=== PATIENT | female | born 1995 | race Caucasian/White ===

== ENCOUNTER 2017-01-07 21:16 | Emergency (ER) | payer OTHER ==
[2017-01-07] MEDS ORDERED: NALOXONE 0.4 MG/ML 1 ML VIAL IM STA (22:26)
--- NOTE | 2017-01-07 22:32 | ED ---
Overdose HPI - General Chief Complaint: Overdose Stated Complaint: overdose Time Seen by Provider: 01/07/17 21:22 Source: patient Mode of arrival: EMS Limitations: no limitations - History of Present Illness Initial Comments: This patient is a 21-year-old woman brought to be evaluated after she probably had an overdose of heroin. The patient states that she had previously been using heroin for about a year, then she was incarcerated for 90 days and was clean. She states she just got out and she went to picker feeder something from friends of hers. She states that they convinced her to use once and the next thing she remembers she was waking up with EMS present. It was reported that she was given Narcan by the intranasal route. The patient is denying any symptoms currently. MD Complaint: accidental overdose -: minutes(s) Context: Accidental Overdose: wanted to get high, uncertain what happened Treatments Prior to Arrival: narcan (Intranasal by fire department) - Related Data Allergies Allergy/AdvReac Type Severity Reaction Status Date / Time naproxen [From Naprosyn] Allergy Itching Verified 07/11/16 16:51 tramadol Allergy Unknown Verified 07/11/16 16:51 Review of Systems ROS Statement: Those systems with pertinent positive or pertinent negative responses have been documented in the HPI. ROS Other: All systems not noted in ROS Statement are negative. Constitutional: Denies: fever, weakness Eyes: Denies: vision change Respiratory: Denies: cough, dyspnea Cardiovascular: Denies: chest pain, palpitations Gastrointestinal: Denies: abdominal pain, nausea, vomiting Musculoskeletal: Denies: back pain Skin: Denies: lesions Neurological: Denies: headache Psychiatric: Denies: depression, homicidal thoughts, suicidal thoughts Past Medical History Additional Past Medical History / Comment(s): bronchitis, ADHD syncopal syndrome History of Any Multi-Drug Resistant Organisms: None Reported Past Surgical History: Section Additional Past Surgical History / Comment(s): D&C Past Psychological History: ADD/ADHD, Anxiety, Depression, Panic Disorder Smoking Status: Current every day smoker Past Alcohol Use History: None Reported Past Drug Use History: Heroin, Marijuana General Exam Limitations: no limitations General appearance: in no apparent distress, other (Somnolent but arouses to voice) Head exam: Present: atraumatic, normocephalic Eye exam: Absent: scleral icterus, conjunctival injection Pupils: Present: miosis Respiratory exam: Present: normal lung sounds bilaterally. Absent: respiratory distress, wheezes, rales, rhonchi, stridor Cardiovascular Exam: Present: regular rate, normal rhythm, normal heart sounds. Absent: systolic murmur, diastolic murmur, rubs, gallop GI/Abdominal exam: Present: soft. Absent: distended, tenderness, guarding, rebound, mass Extremities exam: Present: normal inspection, normal capillary refill. Absent: pedal edema, calf tenderness Back exam: Present: normal inspection Neurological exam: Present: oriented X3, CN II-XII intact, other (Somnolent but arouses to voice) Skin exam: Present: warm, dry, intact, normal color. Absent: rash Course Vital Signs 01/07/17 01/07/17 21:18 23:18 Temperature 98.2 F 97.4 F L Pulse Rate 76 Respiratory 18 Rate Blood Pressure 133/81 O2 Sat by Pulse 98 100 Oximetry Disposition Clinical Impression: Heroin overdose Disposition: Left Against Medical Advice Condition: Undetermined Referrals: None,Stated [Primary Care Provider] - 1-2 days
[2017-01-07 23:20] VITALS: BP 133/81; PULSE 76; RESP 18; TEMP 97.4
== END 2017-01-08 00:17 | disposition left against medical advice (07) ==
LOC: EC 21:16
DX: T40.1X1A Poisoning by heroin, accidental (unintentional), initial encounter (principal); F17.200 Nicotine dependence, unspecified, uncomplicated; Z88.5 Allergy status to narcotic agent; Z88.6 Allergy status to analgesic agent
CPT/HCPCS: 99284; 96372; J2310

== ENCOUNTER 2017-05-04 14:47 | Emergency (ER) | payer OTHER ==
[2017-05-04 15:06] VITALS: BP 122/68; PULSE 95; RESP 18; TEMP 98.9
--- NOTE | 2017-05-04 15:39 | XR ---
EXAMINATION TYPE: XR hand complete RT DATE OF EXAM: 05/04/2017 COMPARISON: NONE HISTORY: Pain TECHNIQUE: Three views are submitted. FINDINGS: The osseous structures are intact. The joint spaces are preserved and there is no acute fracture or dislocation. IMPRESSION: 1. No definite acute fracture or dislocation if symptoms persist, follow-up study in 7 to 10 days wo uld be suggested
--- NOTE | 2017-05-04 15:41 | XR ---
EXAMINATION TYPE: XR wrist complete RT DATE OF EXAM: 05/04/2017 COMPARISON: NONE HISTORY: Pain TECHNIQUE: Four views submitted. FINDINGS: The osseous structures are intact. The joint spaces are preserved and there is no acute fracture or dislocation. IMPRESSION: 1. No definite acute fracture or dislocation if symptoms persist, follow-up study in 7 to 10 days wo uld be suggested
--- NOTE | 2017-05-04 16:10 | ED ---
Upper Extremity HPI - General Chief Complaint: Extremity Injury, Upper Stated Complaint: Swollen Hand Time Seen by Provider: 05/04/17 15:17 Source: patient Mode of arrival: ambulatory Limitations: no limitations - History of Present Illness Initial Comments: 21-year-old female chief complaint of right hand swelling and pain over the past day and a half. Patient reports that on Sunday she had a heavy welding equipment landed on her right hand. Patient reports that she did have the pain after. She states that there has been increased swelling and redness over the past day and half. Patient states that she has limited range of motion of her fingers and wrist due to the swelling. Denies any peripheral paresthesias. She reports that she's a previous heroin IV drug user, and does have scarred tract paulino over her hand. Patient reports that she is not using the last 8 months. He denies any fever or chills. - Related Data Allergies Allergy/AdvReac Type Severity Reaction Status Date / Time naproxen [From Naprosyn] Allergy Itching Verified 05/04/17 15:06 tramadol Allergy Unknown Verified 05/04/17 15:06 Review of Systems ROS Statement: Those systems with pertinent positive or pertinent negative responses have been documented in the HPI. ROS Other: All systems not noted in ROS Statement are negative. Past Medical History Past Medical History: No Reported History Additional Past Medical History / Comment(s): bronchitis, ADHD syncopal syndrome History of Any Multi-Drug Resistant Organisms: None Reported Past Surgical History: Section Additional Past Surgical History / Comment(s): D&C Past Psychological History: ADD/ADHD, Anxiety, Depression, Panic Disorder Smoking Status: Current every day smoker Past Alcohol Use History: None Reported Past Drug Use History: Heroin, Marijuana General Exam - General Exam Comments Initial Comments: 21-year-old female. No acute distress. Limitations: no limitations General appearance: alert, in no apparent distress Head exam: Present: atraumatic, normocephalic, normal inspection Eye exam: Present: normal appearance, PERRL, EOMI. Absent: scleral icterus, conjunctival injection, periorbital swelling ENT exam: Present: normal exam, mucous membranes moist Neck exam: Present: normal inspection. Absent: tenderness, meningismus, lymphadenopathy Respiratory exam: Present: normal lung sounds bilaterally. Absent: respiratory distress, wheezes, rales, rhonchi, stridor Cardiovascular Exam: Present: regular rate, normal rhythm, normal heart sounds. Absent: systolic murmur, diastolic murmur, rubs, gallop, clicks GI/Abdominal exam: Present: soft, normal bowel sounds. Absent: distended, tenderness, guarding, rebound, rigid Extremities exam: Present: normal inspection, full ROM, normal capillary refill. Absent: tenderness, pedal edema, joint swelling, calf tenderness Right Upper Arm exam: Present: normal inspection, full ROM Elbow exam: Present: normal inspection, full ROM Forearm Wrist exam: Present: normal inspection, tenderness, swelling. Absent: full ROM (Has limited flexion and extension of the wrist due to swelling and pain.) Hand Wrist exam: Absent: normal inspection (Evidence of abrasion over the thumb. Patient reports that that is a scar from previous track paulino from parent drug abuse. There is redness and swelling related to the previous track mario alberto. Patient has pain with flexion and extension of the thumb.Entire hand is very swollen.) Vascular: Present: normal capillary refill Back exam: Present: normal inspection Neurological exam: Present: alert, oriented X3, CN II-XII intact Psychiatric exam: Present: normal affect, normal mood Course Vital Signs 05/04/17 15:03 Temperature 98.9 F Pulse Rate 95 Respiratory 18 Rate Blood Pressure 122/68 O2 Sat by Pulse 100 Oximetry Medical Decision Making - Medical Decision Making 18-year-old female presents emergency Department with right hand swelling and pain for the past and half. Patient reports that earlier in the week she dropped some welding equipment on her hand. Patient states that she takes the pain is related to this. Patient is a previous heroin user, there is some swelling and redness related to anal track mario alberto. Patient reports that she has not used the past 8 months. I discussed with her that her x-rays reviewed to be normal. No evidence of fracture. Discussed the more concerned for infectious process causing this to happen to her hand. Patient was informed of this, and would like to go show Dr. Prasad the patient, the patient eloped. Patient left without any antibiotics or any further treatment. I did discuss prior to her leaving the importance of managing the hand swelling is an infection. - Radiology Data Radiology results: report reviewed His hand and wrist x-rays are reviewed and negative for any acute process. No fractures or dislocations. Disposition Clinical Impression: Swelling of right hand Disposition: Left Against Medical Advice Condition: Stable Referrals: None,Stated [Primary Care Provider] - 1-2 days Time of Disposition: 16:09
== END 2017-05-04 16:05 | disposition left against medical advice (07) ==
LOC: EC 14:47
DX: M79.89 Other specified soft tissue disorders (principal); M79.641 Pain in right hand; Z88.6 Allergy status to analgesic agent
CPT/HCPCS: 99283

== ENCOUNTER 2017-11-11 18:21 | Emergency (ER) | payer OTHER ==
[2017-11-11 18:26] VITALS: TEMP 97.9
--- NOTE | 2017-11-11 18:40 | ED ---
Overdose HPI - General Chief Complaint: Overdose Stated Complaint: Overdose Time Seen by Provider: 11/11/17 18:24 Source: patient, EMS, RN notes reviewed Mode of arrival: EMS Limitations: no limitations - History of Present Illness Initial Comments: This a 21-year-old female presented for via EMS for heroin overdose. Patient initially called 911 because her significant other overdosed and when EMS arrived they found her to be nodding off. Patient was given Narcan 1 mg. Patient states she just feels tired and slightly nauseated but has no other complaints. Patient denies any chest pain, shortness breath, headache, focal weakness. Patient states that she sees heroin daily states it's not as often this time. Patient states she did in intact heroin. She denies suicidal or homicidal ideation. - Related Data Home Medications Medication Instructions Recorded Confirmed No Known Home Medications [No 11/11/17 11/11/17 Known Home Medications] Allergies Allergy/AdvReac Type Severity Reaction Status Date / Time naproxen [From Naprosyn] Allergy Itching Verified 11/11/17 18:23 tramadol Allergy Unknown Verified 11/11/17 18:23 Review of Systems ROS Statement: Those systems with pertinent positive or pertinent negative responses have been documented in the HPI. ROS Other: All systems not noted in ROS Statement are negative. Past Medical History Past Medical History: No Reported History Additional Past Medical History / Comment(s): bronchitis, ADHD syncopal syndrome History of Any Multi-Drug Resistant Organisms: None Reported Past Surgical History: Section Additional Past Surgical History / Comment(s): D&C Past Psychological History: ADD/ADHD, Anxiety, Depression, Panic Disorder Smoking Status: Current every day smoker Past Alcohol Use History: None Reported Past Drug Use History: Heroin, Marijuana General Exam Limitations: no limitations General appearance: alert, in no apparent distress Head exam: Present: atraumatic, normocephalic, normal inspection Eye exam: Present: normal appearance, PERRL, EOMI. Absent: scleral icterus, conjunctival injection, periorbital swelling ENT exam: Present: normal exam, normal oropharynx, mucous membranes moist Neck exam: Present: normal inspection, full ROM. Absent: tenderness, meningismus, lymphadenopathy Respiratory exam: Present: normal lung sounds bilaterally. Absent: respiratory distress, wheezes, rales, rhonchi, stridor Cardiovascular Exam: Present: regular rate, normal rhythm, normal heart sounds. Absent: systolic murmur, diastolic murmur, rubs, gallop, clicks GI/Abdominal exam: Present: soft, normal bowel sounds. Absent: distended, tenderness, guarding, rebound, rigid Neurological exam: Present: alert, oriented X3, CN II-XII intact Skin exam: Present: warm, dry, intact, normal color. Absent: rash Course Vital Signs 11/11/17 11/11/17 18:24 19:14 Temperature 97.9 F Pulse Rate 90 97 Respiratory 18 16 Rate Blood Pressure 121/70 105/56 O2 Sat by Pulse 97 96 Oximetry Medical Decision Making - Medical Decision Making 21-year-old female presented for for heroin overdose. Patient was given 1 mg of Narcan IV. Patient has been here for one hour is awake alert and oriented 3. Patient is able to ambulate without difficulty. Patient will be discharged to police custody. Disposition Clinical Impression: Heroin overdose Disposition: HOME SELF-CARE Condition: Stable Instructions: Narcotic Abuse (ED) Additional Instructions: Please return to the Emergency Department if symptoms worsen or any other concerns. Referrals: None,Stated [Primary Care Provider] - 1-2 days Time of Disposition: 19:19
[2017-11-11 19:32] VITALS: BP 107/64; PULSE 89; RESP 20
== END 2017-11-11 19:32 | disposition home or self-care (01) ==
LOC: EC 18:21
DX: T40.1X1A Poisoning by heroin, accidental (unintentional), initial encounter (principal); R11.0 Nausea; F17.200 Nicotine dependence, unspecified, uncomplicated; Z88.5 Allergy status to narcotic agent; Z88.6 Allergy status to analgesic agent
CPT/HCPCS: 99284

== ENCOUNTER 2020-02-27 10:32 | Emergency (ER) | payer OTHER ==
[2020-02-27 10:38] VITALS: TEMP 98.7
--- NOTE | 2020-02-27 11:02 | ED ---
Recheck HPI - General Source: patient, RN notes reviewed, old records reviewed Mode of arrival: EMS Limitations: no limitations <OzieljuwanJoselin - Last Filed: 02/27/20 10:57> <Judith Deal - Last Filed: 02/28/20 21:39> - General Chief Complaint: Recheck/Abnormal Lab/Rx Stated Complaint: Dehydration Time Seen by Provider: 02/27/20 10:38 - History of Present Illness Initial Comments: Patient is a 24-year-old female who presents emergency department today with a 3 days of using methamphetamine and heroin stating that she has been "tweaking". States that she's not been able to eat or drink much because she's been so focused on using her methamphetamine. She reports that EMS was called and she was having some strange behavior she was searching on the ground for pop bottles for money. She states that EMS and police arrived and she did get a ticket for possession of illegal substances. And they brought her here for further evaluation for concerns for dehydration. She received 500 mL of IV fluids and EMS. Upon arrival to emergency department she states that she feels well and would like to be discharged home. She states that she has a dentist appointment at 11:30 she has to get to. She denies any suicidal or homicidal ideation. She states that she has no intention to stop using drugs. She wants a referral for Suboxone. (Joselin Vasquez) - Related Data Home Medications Medication Instructions Recorded Confirmed No Known Home Medications 11/11/17 11/11/17 Allergies Allergy/AdvReac Type Severity Reaction Status Date / Time naproxen [From Naprosyn] Allergy Itching Verified 02/27/20 10:38 tramadol Allergy Unknown Verified 02/27/20 10:38 Review of Systems ROS Other: All systems not noted in ROS Statement are negative. <Joselin Vasquez - Last Filed: 02/27/20 10:57> ROS Other: All systems not noted in ROS Statement are negative. <Judith Deal - Last Filed: 02/28/20 21:39> ROS Statement: Those systems with pertinent positive or pertinent negative responses have been documented in the HPI. Past Medical History Past Medical History: No Reported History Additional Past Medical History / Comment(s): bronchitis, ADHD syncopal syndrome History of Any Multi-Drug Resistant Organisms: None Reported Past Surgical History: Section Additional Past Surgical History / Comment(s): D&C Past Psychological History: ADD/ADHD, Anxiety, Depression, Panic Disorder Smoking Status: Current every day smoker Past Alcohol Use History: None Reported Past Drug Use History: Heroin, Marijuana, Methamphetamine, Opiates <Staci Vasquezily - Last Filed: 02/27/20 10:57> General Exam Limitations: no limitations General appearance: alert, in no apparent distress Head exam: Present: atraumatic, normocephalic, normal inspection Eye exam: Present: normal appearance, PERRL, EOMI, other (dilated pupils). Absent: scleral icterus, conjunctival injection, periorbital swelling ENT exam: Present: normal exam, mucous membranes moist Neck exam: Present: normal inspection. Absent: tenderness, meningismus, lymphadenopathy Respiratory exam: Present: normal lung sounds bilaterally. Absent: respiratory distress, wheezes, rales, rhonchi, stridor Cardiovascular Exam: Present: regular rate, normal rhythm, normal heart sounds. Absent: systolic murmur, diastolic murmur, rubs, gallop, clicks GI/Abdominal exam: Present: soft, normal bowel sounds. Absent: distended, tenderness, guarding, rebound, rigid Extremities exam: Present: normal inspection, full ROM, normal capillary refill. Absent: tenderness, pedal edema, joint swelling, calf tenderness Back exam: Present: normal inspection Neurological exam: Present: alert, CN II-XII intact, other (fidgety) Psychiatric exam: Present: normal affect, normal mood Skin exam: Present: warm, dry, intact, normal color. Absent: rash <Joselin Vasquez - Last Filed: 02/27/20 10:57> - General Exam Comments Initial Comments: 24-year-old female. Fidgety and anxious. (Joselin Vasquez) Course Vital Signs 02/27/20 02/27/20 10:35 11:20 Temperature 98.7 F Pulse Rate 93 85 Respiratory 20 18 Rate Blood Pressure 133/90 124/79 O2 Sat by Pulse 100 99 Oximetry Medical Decision Making <Joselin Vasquez - Last Filed: 02/27/20 10:57> <Judith Deal - Last Filed: 02/28/20 21:39> - Medical Decision Making Patient's 24 [place] female who arrives to emergency department for concern for dehydration. Stating that she has been using methamphetamine for 3 days and states that she's felt dehydrated. History of 500 mL bolus from EMS that she is feeling better upon arrival to emergency department. Patient ate a turkey sandwich and drink a bottle of water in emergency department stating she like to leave. Patient denies any suicidal or homicidal ideations. Discussed Patient is follow-up with substance abuse counseling. I discussed return parameters. (Joselin Vasquez) I was available for consultation in the emergency department. The history and physical exam were done by the midlevel provider. I was consulted for this patients care. I reviewed the case with the midlevel provider and based on their presentation of the patient, I agree with the assessment, medical decision making and plan of care as documented. Chart was dictated using [employer] dictation software. Attempts were made to correct any dictation errors however some typographical errors may persist. Patient was seen during a national state of emergency due to the Covid-19 pandemic. (Judith Deal) Disposition Is patient prescribed a controlled substance at d/c from ED?: No Time of Disposition: 11:01 <Joselin Vasquez - Last Filed: 02/27/20 10:57> <Judith Deal - Last Filed: 02/28/20 21:39> Clinical Impression: Polysubstance abuse Disposition: HOME SELF-CARE Condition: Good Instructions (If sedation given, give patient instructions): Methamphetamine Abuse (ED), Opioid Use Disorder (ED) Additional Instructions: Pt advised to follow-up with substance abuse counseling services. Please follow up with family doctor. Please return to the emergency room if your symptoms increase or worsen or for any other concerns. Referrals: None,Stated [Primary Care Provider] - 1-2 days Tanja Leonardo MD [REFERRING] - 1-2 days
[2020-02-27 11:23] VITALS: BP 124/79; PULSE 85; RESP 18
== END 2020-02-27 11:21 | disposition home or self-care (01) ==
LOC: EC 10:32
DX: F19.10 Other psychoactive substance abuse, uncomplicated (principal); E86.0 Dehydration; Z88.6 Allergy status to analgesic agent; Z88.5 Allergy status to narcotic agent
CPT/HCPCS: 99284